=== PATIENT | female | born 1980 | race Caucasian/White ===

== ENCOUNTER 2024-03-07 09:37 | Outpatient (CLI) | payer MEDICAID, SELFPAY | END 2024-03-07 09:38 | disposition home or self-care (01) | LOC: INJ CL 09:39 | PROVIDERS: PCP Physician Assistant Medical; Visit Provider Family Medicine | DX: M54.16 Radiculopathy, lumbar region (principal); M51.36 Other intervertebral disc degeneration, lumbar region | CPT/HCPCS: 62323; J0702; Q9966 ==

== ENCOUNTER 2024-11-07 12:43 | Outpatient (CLI) | payer MEDICAID, SELFPAY | END 2024-11-07 12:44 | disposition home or self-care (01) | LOC: INJ CL 12:43 | PROVIDERS: PCP Physician Assistant Medical; Visit Provider Family Medicine | DX: M54.16 Radiculopathy, lumbar region (principal); M51.369 Other intervertebral disc degeneration, lumbar region without mention of lumbar back pain or lower extremity pain | CPT/HCPCS: 62323; J0702; Q9966 ==